=== PATIENT | male | born 1995 | race African-American/Black ===

== ENCOUNTER 2023-08-01 23:21 | Emergency (ER) | payer SELFPAY ==
[2023-08-01 23:31] VITALS: BP 140/82
--- NOTE | 2023-08-02 01:04 | ED.GENMED ---
History of Present Illness
<DAVID Cintron - Last Filed: 08/02/23 01:13>
General
Chief Complaint: Musculo-Skeletal Complaint
Source: patient
Exam Limitations: none
Time Seen by Provider: 08/02/23 00:35
Nursing documentation reviewed up to this point in time: agreed with
Travel History
Have you had any contact with someone who has COVID-19?: No
Do you have any symptoms of coronavirus? Fever > 100 degrees, chills, cough, shortness of breath, sore throat, loss of taste or smell, muscle aches, or headache?: No
History of Present Illness
History of Present Illness:
patient is a 28 y/o male presenting with left foot pain x 1-2 weeks. Patient states the pain is located at the middle of his foot and radiates to fifth metatarsal and 5 digit. Patient states pain is worse when he first puts pressure on the foot in
the morning or after being sedentary. patient states walking on the foot gives mild relief. patient describes the pain as sharp. Patient denies trauma, overuse with exercise, fever, chills, tingling, or numbness.
Review of Systems
<DAVID Cintron - Last Filed: 08/02/23 01:13>
Review of Systems
All Other Systems: Not applicable
Constitutional: Reports no symptoms
EENT: Reports no symptoms
Respiratory: Reports no symptoms
Cardiac: Reports no symptoms
ABD/GI: Reports no symptoms
: Reports no symptoms
Musculoskeletal: Reports muscle pain and other (foot pain)
Skin: Reports no symptoms
Neurological: Reports no symptoms
Endocrine: Reports no symptoms
Hematologic/Lymphatic: Reports no symptoms
Psychiatric: Reports no symptoms
Phy Exam
<DAVID Cintron - Last Filed: 08/02/23 01:13>
General Physical Exam
General Presentation: well appearing and no apparent distress
General Skin: warm and dry
General Habitus: normal
General Mental: alert
General Hydration: appears well hydrated
ENT Exam
ENT Exam: EOMI, pharynx normal, neck supple and normocephalic
Eye Exam
Eye Exam: PERRL, cornea clear and conjunctiva normal
Cardiovascular Exam
Cardiovascular Exam: regular rate/rhythm, no edema, no murmur and normal peripheral pulses
Pulmonary Exam
Pulmonary Exam: lungs clear, no respiratory distress, no rales, no crackles, no rhonchi, no stridor, no wheezing and no cough
Gastrointestinal Exam
Gastrointestinal Exam: normal bowel sounds, non tender, soft, no organomegaly, no pulsatile mass and non distended
Neurological Exam
Neurological Exam: alert, oriented x3, no motor deficits and speech normal
Musculoskeletal Exam
Musculoskeletal Exam: full ROM and no edema
Skin Exam
Skin Exam: normal color, warm/dry, no rash and no petechia
Psychiatric Exam
Psychiatric Exam: normal mood/affect
Course
<DAVID Cintron - Last Filed: 08/02/23 01:13>
Orders/Labs/Results
Orders:
Orders
08/02/23 00:34
CR Foot - Left Min 3 Views Urgent
Comment:
Reason For Exam: pain
Vital Signs
Initial and Last Documented VS:
Initial Vital Signs
Temp Pulse Resp BP Pulse Ox
97.4 F 94 22 140/82 97
08/01/23 23:31 08/01/23 23:31 08/01/23 23:31 08/01/23 23:31 08/01/23 23:31
Last Documented Vital Signs
Temp Pulse Resp BP Pulse Ox
97.4 F 94 22 140/82 97
08/01/23 23:31 08/01/23 23:31 08/01/23 23:31 08/01/23 23:31 08/01/23 23:31
<Wesly Lawton DO - Last Filed: 08/02/23 01:22>
Orders/Labs/Results
Orders:
Orders
08/02/23 00:34
CR Foot - Left Min 3 Views Urgent
Comment:
Reason For Exam: pain
Vital Signs
Initial and Last Documented VS:
Initial Vital Signs
Temp Pulse Resp BP Pulse Ox
97.4 F 94 22 140/82 97
08/01/23 23:31 08/01/23 23:31 08/01/23 23:31 08/01/23 23:31 08/01/23 23:31
Last Documented Vital Signs
Temp Pulse Resp BP Pulse Ox
97.4 F 94 22 140/82 97
08/01/23 23:31 08/01/23 23:31 08/01/23 23:31 08/01/23 23:31 08/01/23 23:31
<DAVID Cintron - Last Filed: 08/02/23 01:13>
MDM/Problems Addressed
Differential Diagnosis Includes:
plantar fascitis
flores fracture
lisfranc injury
MDM/Problems Addressed:
foot pain
<DAVID Cintron - Last Filed: 08/02/23 01:13>
*Critical Care Note
Total Time (30-74mins, 75-104mins- exclusive of procedures): Not Applicable
ED Attending Note
<DAVID Cintron - Last Filed: 08/02/23 01:13>
-
Portions of this chart may have been created with voice recognition software.� Occasional wrong word or��sound alike� substitutions may have occurred due to the inherent limitations of voice recognition software.
<Wesly Lawton DO - Last Filed: 08/02/23 01:22>
ED Attending Note
Patient seen and examined by attending physician: Yes
I performed the substantive portion of visit, reviewed & personally made and approve the management plan that is documented in note by myself or DAYNA.: Yes
ED Attending Note:
Pleasant 28-year-old male who presents with left foot pain. He states that hurts in the morning when he awakes. He states that after gentle stretches it feels better. Denies any trauma. He states that it is worse after a long day of standing on
his feet. 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 Patient was seen in conjunction with the PA student. I have reviewed and agree with the history and treatment plan presented.
On my independent physical exam, patient is awake, alert, and oriented x3, no acute distress. Heart is regular rate rhythm. Focused physical exam was left foot. Normal color. Normothermic. Good capillary refill. Full range of motion. No
tenderness to palpation reproduced.
Likely plantars fasciitis. Given patient instructions as well as follow-up with podiatry. He will try NSAIDs.
Discharge Plan
Departure
Patient Disposition: Home (Routine Discharge)
Date of Disposition: 08/02/23
Time of Disposition: 01:12
Patient with high blood pressure during this ER visit?: Yes
Condition: Good
Covid-19: Not Applicable
Discharge Problem:
Plantar fasciitis of left foot
Instructions: Metatarsalgia (DC), Ibuprofen, Plantar Fasciitis Exercises
Prescriptions:
New
diclofenac sodium 75 mg tablet,delayed release (DR/EC)
75 mg PO BID Qty: 10 0RF
Referrals:
Minh Cain DPM [Specified Professional Personl] - Call in 1-3 days for appt
NONE,* [Family Provider] -
Activity Restrictions/Additional Instructions:
It was a pleasure meeting you and taking part in your care. We hope for your continued healing and wellness.
Please read discharge instructions in their entirety. However, they are for general education and may not describe your exact diagnosis at discharge. Information on your ER visit and medical conditions were discussed with you along with appropriate
follow up information...
If indicated, please take your medications as instructed and indicated on discharge paperwork.
Please schedule a follow up appointment as directed. Call to schedule an appointment
Please return to the emergency department with ANY change in, persisting, or worsening of symptoms. If any of your symptoms do not improve, or persist, or become more severe within 6-12 hours, please return to the emergency department for further
care.
Please return to the emergency department if you develop a headache, neck pain/stiffness, fever greater than 100.4F, chest pain, shortness of breath, persistent nausea, vomiting, slurred speech, difficulty walking, numbness/tingling, weakness, signs
of infection or any other symptoms that are worrisome to you.
If you have any questions or concerns please do not hesitate to call the Hospital at or E-mail me directly at [email or web address]
Interventions
Interventions:
*Risk Screen - Suicide Last Done: 08/01/23 23:31
*General Assessment Last Done: 08/02/23 00:20
*Neglect/Abuse Screening Last Done: 08/01/23 23:31
ED-Musculoskeletal Assessment Last Done: 08/02/23 00:19
Discharge Date and Time
Print Language: MONGOLIAN
[2023-08-02] MEDS: MOTRIN 800 MG PO (01:23)
== END 2023-08-02 01:27 | disposition home or self-care (01) ==
LOC: EMR 23:21
PROVIDERS: EMERGENCY PHYSICIAN Student in an Organized Health Care Education/Training Program
DX: M72.2 Plantar fascial fibromatosis (principal); R03.0 Elevated blood-pressure reading, without diagnosis of hypertension
CPT/HCPCS: 99283; 73630

== ENCOUNTER 2023-10-14 10:51 | Emergency (ER) | payer SELFPAY ==
[2023-10-14 11:10] VITALS: BP 132/95
--- NOTE | 2023-10-14 12:35 | ED.GENMED ---
History of Present Illness
<Skye Goldberg PA-C - Last Filed: 10/14/23 20:28>
General
Chief Complaint: Oral/Mouth Problem
Source: patient
Exam Limitations: none
Time Seen by Provider: 10/14/23 12:06
Nursing documentation reviewed up to this point in time: agreed with
Travel History
Have you had any contact with someone who has COVID-19?: No
Do you have any symptoms of coronavirus? Fever > 100 degrees, chills, cough, shortness of breath, sore throat, loss of taste or smell, muscle aches, or headache?: No
History of Present Illness
History of Present Illness:
Patient is a 28-year-old male with no known medical problems presenting to the emergency department for evaluation of bumps on tongue. Patient states he noticed these a few weeks ago while looking in the rearview mirror of his car. He does notice
occasional bleeding when he brushes his tongue. Patient denies any pain or itch associated with these bumps. Patient denies any other symptoms including fever, chills, sore throat, cough, ear pain. Patient denies any dental pain.
Patient has not seen a dentist in many years. He does have a primary care provider back where he resides in [place].
Patient denies any smoking history.
Review of Systems
<Skye Goldberg PA-C - Last Filed: 10/14/23 20:28>
Review of Systems
Allergies reviewed?: Yes
All Other Systems: ROS reviewed and negative except as documented in HPI and ROS
Phy Exam
<Skye Goldberg PA-C - Last Filed: 10/14/23 20:28>
Physical Exam
Physical Exam:
Vitals: Patient's vital signs are stable. Afebrile
General: Patient is well appearing, no acute distress. Nontoxic-appearing
Skin: Warm and dry, no rashes or lesions
Head: Normocephalic, atraumatic
Eyes: Sclera nonicteric. EOMs intact. No nystagmus.
Throat: Normal oral exam. No lesions or abnormalities noted to tongue. Normal papilla of tongue. No active bleeding. No blood in posterior pharynx. Uvula midline. Protecting airway
Neck: Normal ROM, no cervical spine tenderness, no meningismus. No lymphadenopathy.
Cardiac: Regular rate and rhythm, no murmurs.
Pulm: Normal respiratory effort, no wheezes, rales, rhonchi heard on exam.
Abdomen: No abdominal tenderness.
Extremities: No evidence of cyanosis or edema
Neuro: AAOx3. CN II-XII intact. No focal neurologic deficits.
Psychiatric: Normal affect.
Course
<Skye Goldberg PA-C - Last Filed: 10/14/23 20:28>
Vital Signs
Initial and Last Documented VS:
Initial Vital Signs
Temp Pulse Resp BP Pulse Ox
98.0 F 76 18 132/95 98
10/14/23 11:10 10/14/23 11:10 10/14/23 11:10 10/14/23 11:10 10/14/23 11:10
Last Documented Vital Signs
Temp Pulse Resp BP Pulse Ox
98.0 F 76 18 132/95 98
10/14/23 11:10 10/14/23 11:10 10/14/23 11:10 10/14/23 11:10 10/14/23 11:10
<Brad Blount DO - Last Filed: 10/14/23 15:30>
Vital Signs
Initial and Last Documented VS:
Initial Vital Signs
Temp Pulse Resp BP Pulse Ox
98.0 F 76 18 132/95 98
10/14/23 11:10 10/14/23 11:10 10/14/23 11:10 10/14/23 11:10 10/14/23 11:10
Last Documented Vital Signs
Temp Pulse Resp BP Pulse Ox
98.0 F 76 18 132/95 98
10/14/23 11:10 10/14/23 11:10 10/14/23 11:10 10/14/23 11:10 10/14/23 11:10
<Skye Goldberg PA-C - Last Filed: 10/14/23 20:28>
MDM/Problems Addressed
Differential Diagnosis Includes:
Not limited to: Tongue papilla, oral ulcers, leukoplakia, erythroplakia, leukoplakia
MDM/Problems Addressed:
28-year-old male presenting with concerns of bumps noted to the back of his tongue. Bumps are nontender, no associated itch. No difficulty swallowing, sore throat, fevers or chills. No other lesions in mouth. Vital stable, afebrile. Exam as
above. Patient has a completely normal oral exam. Some papilla noted to posterior tongue which are normal in appearance. No other lesions or patches noted to tongue. Posterior pharynx clear without any erythema, or tonsillar edema. No evidence
of infection or other abnormality noted. Stable for discharge with primary care/dentist follow-up. Return precautions discussed with patient. Patient comfortable with plan. All questions answered.
Chronic conditions affecting care:
N/A
Acute Exacerbation and/or Progression of Chronic Illness:
N/A
<Skye Goldberg PA-C - Last Filed: 10/14/23 20:28>
*Pulse Oximetry
Patient hypoxic: no
*EKG
Interpreted by ED Provider?: NA
*Digital Sales Planner Interpretation
Rate: Digital Sales Planner- N/A
*Critical Care Note
Total Time (30-74mins, 75-104mins- exclusive of procedures): Not Applicable
ED Attending Note
<RAISA Jeffrey Last Filed: 10/14/23 20:28>
-
Portions of this chart may have been created with voice recognition software.� Occasional wrong word or��sound alike� substitutions may have occurred due to the inherent limitations of voice recognition software.
<Brad Blount DO - Last Filed: 10/14/23 15:30>
ED Attending Note
Patient seen and examined by attending physician: Yes
I performed the substantive portion of visit, reviewed & personally made and approve the management plan that is documented in note by myself or DAYNA.: Yes
ED Attending Note:
Normal tongue, no evidence of infection. No abnormalities. No symptoms
Discharge Plan
Departure
Patient Disposition: Home (Routine Discharge)
Date of Disposition: 10/14/23
Time of Disposition: 13:18
Patient with high blood pressure during this ER visit?: Yes
Condition: Good
Covid-19: Not Applicable
Discharge Problem:
Normal tongue exam
Instructions: BLOOD PRESSURE
Prescriptions:
No Action
diclofenac sodium 75 mg tablet,delayed release (DR/EC)
75 mg PO BID Qty: 10 0RF
Referrals:
UNKNOWN - PT DOES,NOT KNOW [Family Provider] -
Activity Restrictions/Additional Instructions:
RETURN TO THE EMERGENCY DEPARTMENT WITH ANY HIGH FEVERS, CHILLS, SEVERE HEADACHE OR NECK PAIN, CHEST PAIN, SHORTNESS OF BREATH, WORSENING IN CURRENT SYMPTOMS OR ANY OTHER CONCERNS
-As discussed�you should follow-up with your primary care provider to establish care with a dentist for further evaluation/management
Interventions
Interventions:
*Risk Screen - Suicide Last Done: 10/14/23 13:19
*General Assessment Last Done: 10/14/23 13:19
*Neglect/Abuse Screening Last Done: 10/14/23 13:19
ED- Fall Risk Assessment Last Done: 10/14/23 13:19
*ED COVID-19 Vaccine History Last Done: 10/14/23 11:10
*Nursing Disposition Last Done: 10/14/23 13:19
Discharge Date and Time
Discharge Date/Time: 10/14/23 13:20
Print Language: CYPRIOT
== END 2023-10-14 13:20 | disposition home or self-care (01) ==
LOC: EMR 10:51
PROVIDERS: EMERGENCY PHYSICIAN Emergency Medicine
DX: Z03.89 Encounter for observation for other suspected diseases and conditions ruled out (principal); R03.0 Elevated blood-pressure reading, without diagnosis of hypertension; Z87.01 Personal history of pneumonia (recurrent); Z86.16 Personal history of COVID-19
CPT/HCPCS: 99281